=== PATIENT | female | born 1985 | race Caucasian/White ===

== ENCOUNTER 2018-01-02 18:17 | Emergency (ER) | payer SELFPAY ==
[~2018-01-02] VITALS: Ht 172.7 cm; Wt 83.5 kg
[2018-01-02] MEDS ORDERED: PERCOCET 5/31 TABLET PO (20:25)
[2018-01-02] MEDS ORDERED: AMOXICILLIN875 MG PO (20:25)
[2018-01-02] MEDS ORDERED: CARBAMAZEPINE100 MG PO (20:26)
[2018-01-02 20:34] VITALS: BP 130/83
== END 2018-01-02 21:10 | disposition home or self-care (01) ==
LOC: EME 18:17
DX: R51 Headache (principal); K08.89 Other specified disorders of teeth and supporting structures
CPT/HCPCS: 99281; 99284; J8540